=== PATIENT | female | born 2000 | race Caucasian/White ===

== ENCOUNTER 2022-07-23 19:30 | Emergency (ER) | payer MEDICAID, OTHER ==
[~2022-07-23] VITALS: Ht 152.4 cm; Wt 90.0 kg
[2022-07-23 20:45] VITALS: BP 119/78
[2022-07-23] MEDS ORDERED: SODIUM CHLORIDE 0.9% 1,000 ML IV ONE (20:45)
[2022-07-23] MEDS ORDERED: LORazepam 2MG/ML-1ML VIAL IM ONE (20:45)
[2022-07-23] MEDS ORDERED: ACETAMINOPHEN 325 MG TAB PO ONE (21:15)
== END 2022-07-24 00:25 | disposition home or self-care (01) ==
LOC: ER 19:30 → EDBD 19:30 → ER 07-24 00:25
DX: R56.9 Unspecified convulsions (principal)
CPT/HCPCS: 96365; 99284; J1953; J7030; J7060

== ENCOUNTER 2022-11-26 18:30 | Emergency (ER) | payer MEDICAID ==
[~2022-11-26] VITALS: Ht 167.6 cm; Wt 100.0 kg
[2022-11-26] MEDS ORDERED: ONDANSETRON ODT 4 MG TAB PO ONE (20:00)
[2022-11-26] MEDS ORDERED: LORazepam 2MG/ML-1ML VIAL IV ONE ×2 (20:00→21:54)
[2022-11-26] MEDS ORDERED: ACETAMINOPHEN 500 MG TAB PO ONE (20:00)
[2022-11-26 20:30] LABS: Basophils # (auto) 0.1 10 ^3/uL (0-0.2); Basophils % (auto) 0.6 % (0.0-2.0); Eosinophils # (auto) 0.4 10 ^3/uL (0-0.8); Mean Corpuscular Volume 76.3 fL (80.0-100.0)
[2022-11-26 20:31] LABS: Eosinophils % (auto) 2.9 % (0.0-7.0); Hematocrit 47.2 % (36.0-46.0); Hemoglobin 15.6 g/dL (12.2-16.2); Lymphocytes # (auto) 4.2 10 ^3/uL (0.4-5.4); Lymphocytes % (auto) 31.4 % (10.0-50.0); Mean Corpuscular Hemoglobin 25.1 pg (28.0-32.0); Monocytes # (auto) 0.8 10 ^3/uL (0-1.3); Monocytes % (auto) 5.8 % (0.0-12.0); Neutrophils % (auto) 59.3 % (37.0-80.0); Nucleated Red Blood Cells % 0.2 %; Red Blood Cells 6.19 10^6/uL (4.0-5.20); Red Cell Distribution Width 14.4 % (11.8-14.3); White Blood Cell 13.4 10^3/uL (4.4-10.8)
[2022-11-26 20:47] LABS: Albumin 3.7 g/dL (3.4-5.0); BUN/Creatinine Ratio 16.3; Calcium 9.2 mg/dL (8.5-10.1); Magnesium 2.4 mg/dL (1.6-2.6); Potassium 3.7 mmol/L (3.5-5.1)
[2022-11-26 21:36] LABS: Bilirubin, Total 0.4 mg/dL (0.2-1.0); Total Protein 6.9 g/dL (6.4-8.2)
[2022-11-26] MEDS ORDERED: LORazepam 2MG/ML-1ML VIAL ONE (21:52)
[2022-11-27] MEDS ORDERED: ACETAMINOPHEN 325 MG TAB PO ONE (04:45)
[2022-11-27 06:00] VITALS: BP 109/67
== END 2022-11-27 08:20 | disposition home or self-care (01) ==
LOC: EDBD 18:30 → ER 18:30
DX: R56.9 Unspecified convulsions (principal); R07.89 Other chest pain; Z86.69 Personal history of other diseases of the nervous system and sense organs
CPT/HCPCS: 36415; 71045; 80053; 83735; 84484; 85025; 93005; 96374; 96376; 99285; J2060; Q0162

== ENCOUNTER 2023-02-23 08:40 | Inpatient (IN) | payer MEDICAID ==
[~2023-02-23] VITALS: Ht 152.4 cm; Wt 101.6 kg
[2023-02-23 09:32] LABS: Basophils # (auto) 0.1 10 ^3/uL (0-0.2); Eosinophils # (auto) 0.2 10 ^3/uL (0-0.8); Eosinophils % (auto) 0.9 % (0.0-7.0); Hemoglobin 14.8 g/dL (12.2-16.2); Nucleated Red Blood Cells % 0.1 %
[2023-02-23 09:34] LABS: Basophils % (auto) 0.6 % (0.0-2.0); Lymphocytes # (auto) 2.3 10 ^3/uL (0.4-5.4); Lymphocytes % (auto) 12.2 % (10.0-50.0); Mean Corpuscular Hemoglobin 25.2 pg (28.0-32.0); Mean Corpuscular Hgb Conc. 33.5 g/dL (32.0-36.0); Mean Corpuscular Volume 75.2 fL (80.0-100.0); Monocytes # (auto) 0.8 10 ^3/uL (0-1.3); Monocytes % (auto) 4.1 % (0.0-12.0); Neutrophils # (auto) 15.3 10 ^3/uL (1.6-8.6); Neutrophils % (auto) 82.2 % (37.0-80.0); Red Blood Cells 5.86 10^6/uL (4.0-5.20); Red Cell Distribution Width 14.5 % (11.8-14.3); White Blood Cell 18.6 10^3/uL (4.4-10.8)
[2023-02-23 09:34] LABS: Urine Bacteria MANY /hpf (None Seen); Urine Blood Negative /uL (Negative); Urine Hyaline Cast FEW /lpf (0 - 2); Urine Mucus FEW (None Seen); Urine Specific Gravity 1.029 (1.001-1.035); Urine WBC 19 /hpf (0 - 5)
[2023-02-23 09:54] LABS: Albumin 3.4 g/dL (3.4-5.0); Calcium 8.9 mg/dL (8.5-10.1); Potassium 3.9 mmol/L (3.5-5.1)
[2023-02-23 09:57] LABS: BUN/Creatinine Ratio 16.9 (10.0-20.0); Bilirubin, Total 0.2 mg/dL (0.2-1.0); Total Protein 7.7 g/dL (6.4-8.2)
[2023-02-23] MEDS ORDERED: KETOROLAC TROMETH 30 MG/ML 1ML VIAL IM ONE (12:45)
[2023-02-23] MEDS ORDERED: cefTRIAXone 1GM/50ML D5W 50 ML IV ONE (16:45)
[2023-02-23] MEDS ORDERED: LACTATED RINGER'S 1,000 ML IV ONE (16:45)
[2023-02-23] MEDS ORDERED: ACETAMINOPHEN 325 MG TAB PO PRN (18:45)
[2023-02-23] MEDS ORDERED: MORPHINE SULFATE INJ 2 MG/ml SYRG IV PRN (18:45)
[2023-02-23] MEDS ORDERED: HYDROcodone-ACET 5/325MG TAB PO PRN (18:45)
[2023-02-23] MEDS ORDERED: ONDANSETRON HCL 4 MG/2 ML VIAL IV PRN (18:45)
[2023-02-23] MEDS ORDERED: LAMO200T34 PO (19:29)
[2023-02-23] MEDS ORDERED: METO25TA93 PO (19:29)
[2023-02-23] MEDS ORDERED: IBUPROFEN 800 MG TAB PO PRN (19:30)
[2023-02-23] MEDS ORDERED: hydrALAZINE HCL 20 MG/ML VL IV PRN (19:30)
[2023-02-23] MEDS ORDERED: PANTOPRAZOLE 40 MG/10 ML VIAL INJ IV ONE (19:30)
[2023-02-23 20:27] LABS: Cholesterol 156 mg/dL (< 200)
[2023-02-23 20:29] LABS: HDL Cholesterol 29 mg/dL (40-59); LDL Cholesterol 105 mg/dL (< 100); Triglycerides 207 mg/dL (< 150)
[2023-02-23] MEDS: SODIUM CHLORIDE 0.9% 1,000 ML IV SCH (21:50)
[2023-02-23 21:54] LABS: Alcohol, Urine < 3.0 mg/dL (0-10); Amphetamine Screen, Urine NEGATIVE (NEGATIVE); Barbiturate Scree,Urine NEGATIVE (NEGATIVE); Benzodiazephine Screen, Urine NEGATIVE (NEGATIVE); Cannabinoid Screen, Urine NEGATIVE (NEGATIVE); Cocaine Screen, Urine NEGATIVE (NEGATIVE); Opiate Scree,Urine NEGATIVE (NEGATIVE); Phencyclidine Screen, Urine NEGATIVE (NEGATIVE)
[2023-02-23 22:27] VITALS: BP 108/71
[2023-02-23] MEDS ORDERED: LORazepam 2MG/ML-1ML VIAL IV PRN (23:30)
[2023-02-24] MEDS: SODIUM CHLORIDE 0.9% 1,000 ML IV SCH ×3 (03:30→22:01)
[2023-02-24] MEDS ORDERED: SERT-160 PO (04:24)
[2023-02-24] MEDS ORDERED: QUET100T47 PO (04:24)
[2023-02-24] MEDS ORDERED: PRA1C PO (04:26)
[2023-02-24 05:00] VITALS: BP 114/73
[2023-02-24 06:58] LABS: Basophils # (auto) 0.1 10 ^3/uL (0-0.2); Eosinophils # (auto) 0.3 10 ^3/uL (0-0.8); Hematocrit 41.1 % (36.0-46.0); Mean Corpuscular Hemoglobin 25.4 pg (28.0-32.0); White Blood Cell 10.6 10^3/uL (4.4-10.8)
[2023-02-24 07:01] LABS: Basophils % (auto) 1.1 % (0.0-2.0); Eosinophils % (auto) 2.4 % (0.0-7.0); Hemoglobin 13.9 g/dL (12.2-16.2); Lymphocytes # (auto) 3.8 10 ^3/uL (0.4-5.4); Lymphocytes % (auto) 35.7 % (10.0-50.0); Mean Corpuscular Hgb Conc. 33.9 g/dL (32.0-36.0); Monocytes # (auto) 0.9 10 ^3/uL (0-1.3); Monocytes % (auto) 8.3 % (0.0-12.0); Neutrophils # (auto) 5.5 10 ^3/uL (1.6-8.6); Neutrophils % (auto) 52.5 % (37.0-80.0); Nucleated Red Blood Cells % 0.2 %; Red Blood Cells 5.48 10^6/uL (4.0-5.20); Red Cell Distribution Width 14.4 % (11.8-14.3)
[2023-02-24 07:13] LABS: Potassium 3.7 mmol/L (3.5-5.1)
[2023-02-24 07:24] LABS: Albumin 2.9 g/dL (3.4-5.0); BUN/Creatinine Ratio 20.3 (10.0-20.0); Bilirubin, Total 0.4 mg/dL (0.2-1.0); Calcium 8.5 mg/dL (8.5-10.1); Total Protein 6.4 g/dL (6.4-8.2)
[2023-02-24 09:00] VITALS: BP 106/61
[2023-02-24] MEDS: cefTRIAXone 1GM/50ML D5W 50 ML IV SCH (10:34)
[2023-02-24] MEDS: lamoTRIgine 100 MG TAB PO SCH ×2 (10:35)
[2023-02-24] MEDS: TOPIRAMATE 25 MG TAB PO SCH ×3 (10:35→21:02)
[2023-02-24] MEDS: PANTOPRAZOLE 40 MG/10 ML VIAL INJ IV SCH (10:35)
[2023-02-24] MEDS: ENOXAPARIN SOD 40 MG/0.4 ML SYRINGE SC SCH (10:37)
[2023-02-24] MEDS ORDERED: LORA24TA PO (12:08)
[2023-02-24] MEDS ORDERED: TOPI100T68 PO (12:08)
[2023-02-24 13:00] VITALS: BP 105/68
[2023-02-24 17:00] VITALS: BP 118/73
[2023-02-24 21:53] VITALS: BP 123/75
[2023-02-24] MEDS ORDERED: QUEtiapine FUMARATE 100 MG TAB PO SCH (22:00)
[2023-02-25] MEDS: SODIUM CHLORIDE 0.9% 1,000 ML IV SCH ×2 (03:30→12:54)
[2023-02-25 05:20] VITALS: BP 80/43
[2023-02-25 06:26] VITALS: BP 124/77
[2023-02-25 09:00] VITALS: BP 122/62
[2023-02-25] MEDS: TOPIRAMATE 25 MG TAB PO SCH (09:16)
[2023-02-25] MEDS: cefTRIAXone 1GM/50ML D5W 50 ML IV SCH (09:17)
[2023-02-25] MEDS: PANTOPRAZOLE 40 MG/10 ML VIAL INJ IV SCH (09:17)
[2023-02-25] MEDS: ENOXAPARIN SOD 40 MG/0.4 ML SYRINGE SC SCH (09:17)
[2023-02-25] MEDS: lamoTRIgine 100 MG TAB PO SCH (09:17)
[2023-02-25] MEDS ORDERED: SERTRALINE HCL 50 MG TAB PO SCH (10:00)
[2023-02-25 13:00] VITALS: BP 118/75
[2023-02-25 15:29] VITALS: BP 118/75
[2023-02-25] MEDS ORDERED: NITR1CAP23 PO (16:40)
[2023-02-25 17:00] VITALS: BP 142/73
== END 2023-02-25 18:57 | disposition home or self-care (01) | DRG 463 ==
LOC: ER 08:40 → OVERFLOW 18:46 → WEST WING 22:11
PROVIDERS: ADMIT Registered Nurse; ATTEND Internal Medicine
DX: N30.01 Acute cystitis with hematuria (principal); R56.9 Unspecified convulsions; M02.39 Reiter's disease, multiple sites; E66.01 Morbid (severe) obesity due to excess calories; I10 Essential (primary) hypertension; Z20.822 Contact with and (suspected) exposure to COVID-19; Z68.41 Body mass index [BMI] 40.0-44.9, adult; Z79.899 Other long term (current) drug therapy
CPT/HCPCS: 36415; 71046; 76775; 80053; 80061; 80307; 81001; 81025; 82550; 83036; 83605; 84443; 85025; 85379; 85652; 86141; 87040; 87086; 87426; 96372; 96374; 99291; C9113; G0378; J0696; J1885

== ENCOUNTER 2023-03-08 18:58 | Emergency (ER) | payer MEDICAID ==
[~2023-03-08] VITALS: Ht 167.6 cm; Wt 90.9 kg
[~2023-03-08 18:58] MED LIST: LAMO200T34 PO; LORA24TA PO; METO25TA93 PO; NITR1CAP23 PO; PRA1C PO; QUET100T47 PO; SERT-160 PO; TOPI100T68 PO
[2023-03-08] MEDS ORDERED: ACCU-CHEK COMFORT CURVE STRIP VI ONE (19:30)
[2023-03-08 20:17] LABS: Basophils # (auto) 0.1 10 ^3/uL (0-0.2); Basophils % (auto) 0.7 % (0.0-2.0); Eosinophils # (auto) 0.8 10 ^3/uL (0-0.8); Eosinophils % (auto) 5.8 % (0.0-7.0); Hemoglobin 14.6 g/dL (12.2-16.2); Lymphocytes # (auto) 4.8 10 ^3/uL (0.4-5.4); Lymphocytes % (auto) 34.7 % (10.0-50.0); Mean Corpuscular Hemoglobin 25.1 pg (28.0-32.0); Mean Corpuscular Hgb Conc. 32.5 g/dL (32.0-36.0); Mean Corpuscular Volume 77.3 fL (80.0-100.0); Monocytes # (auto) 0.8 10 ^3/uL (0-1.3); Monocytes % (auto) 5.9 % (0.0-12.0); Neutrophils # (auto) 7.4 10 ^3/uL (1.6-8.6); Neutrophils % (auto) 52.9 % (37.0-80.0); Nucleated Red Blood Cells % 0.6 %; Red Blood Cells 5.82 10^6/uL (4.0-5.20); Red Cell Distribution Width 14.9 % (11.8-14.3); White Blood Cell 13.9 10^3/uL (4.4-10.8)
[2023-03-08 20:40] LABS: Albumin 3.2 g/dL (3.4-5.0); Calcium 8.9 mg/dL (8.5-10.1); Potassium 3.6 mmol/L (3.5-5.1)
[2023-03-08 20:44] LABS: Bilirubin, Total 0.2 mg/dL (0.2-1.0); Total Protein 7.1 g/dL (6.4-8.2)
[2023-03-08 23:36] LABS: Urine Bacteria FEW /hpf (None Seen); Urine Blood Negative /uL (Negative); Urine Specific Gravity 1.008 (1.001-1.035); Urine WBC 1 /hpf (0 - 5)
[2023-03-09] MEDS ORDERED: ACETAMINOPHEN 325 MG TAB PO ONE (00:30)
[2023-03-09] MEDS ORDERED: ACETAMINOPHEN 500 MG TAB PO ONE (00:39)
[2023-03-09 03:01] VITALS: BP 108/70
== END 2023-03-09 03:28 | disposition home or self-care (01) ==
LOC: EDBD 18:58 → ER 18:58
DX: R56.9 Unspecified convulsions (principal)
CPT/HCPCS: 36415; 70450; 80053; 81001; 85025; 93005

== ENCOUNTER 2023-09-08 12:19 | Emergency (ER) | payer MEDICAID ==
[~2023-09-08] VITALS: Ht 152.4 cm; Wt 96.6 kg
[2023-09-08 13:24] VITALS: BP 113/70; PULSE 84; RESP 16; TEMP 98.5; O2SAT 98
== END 2023-09-08 14:07 | disposition home or self-care (01) ==
LOC: ER 12:19
DX: S93.401A Sprain of unspecified ligament of right ankle, initial encounter (principal); J45.909 Unspecified asthma, uncomplicated; Z79.899 Other long term (current) drug therapy; X50.1XXA Overexertion from prolonged static or awkward postures, initial encounter; Y93.89 Activity, other specified; Y92.89 Other specified places as the place of occurrence of the external cause; Y99.8 Other external cause status
CPT/HCPCS: 73610

== ENCOUNTER 2023-11-07 11:44 | Emergency (ER) | payer MEDICAID ==
[~2023-11-07] VITALS: Ht 154.9 cm; Wt 220.0 kg
[2023-11-07] MEDS ORDERED: levETIRAcetam 1000 mg/100ml 100 ML IV ONE (15:30)
[2023-11-07 17:28] VITALS: BP 103/74; PULSE 83; RESP 16; TEMP 98.8; O2SAT 95
== END 2023-11-07 17:28 | disposition home or self-care (01) ==
LOC: ER 11:44 → EDBD 11:44 → ER 17:28
DX: R56.9 Unspecified convulsions (principal); J45.909 Unspecified asthma, uncomplicated
CPT/HCPCS: 96365; 99284; J1953